=== PATIENT | female | born 1980 | race African-American/Black ===

== ENCOUNTER 2016-12-24 07:20 | Inpatient (IN) | payer OTHER ==
[2016-12-24 07:51] VITALS: BMI 26.4
[2016-12-24] MEDS: ELECTROLYTE-148 SOLN 1,000 ML IV SCH (08:00)
[2016-12-24] MEDS ORDERED: CITRIC ACID/SODIUM CITRATE 30 ML UNIT-DOSE CUP PO ONE (08:32)
--- NOTE | 2016-12-24 08:38 | HP ---
Past Medical History - Primary Care Physician PCP:: Gabe Daley - Admission Chief Complaint: preganancy 39 weeks, previous c/s request of c/s and BTL, AMA History of Present Illness: 36 yo f 39 weeks, ama, previous c/s request of repeat c/s and BTL, aware failure risk and riskof ectopic, rba discussed, hx of fibroid uterus History Source: Patient Limitations to Obtaining History: No Limitations - Past Medical History ...: 2 ...Para: 1 ...Term: 1 ...: 0 ...Spon : 0 ...Induced : 0 ...Multiple Gestation: 0 ...LMP: 03/26/17 ... 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 Home Medications - Allergies Allergies/Adverse Reactions: Allergies Allergy/AdvReac Type Severity Reaction Status Date / Time No Known Allergies Allergy Verified 01/22/14 10:10 - Home Medications Home Medications: Ambulatory Orders Vitamins (Sjr) - 1 tab PO DAILY 05/25/14 Review of Systems - Review of Systems Constitutional: reports: No Symptoms Eyes: reports: No Symptoms HENT: reports: No Symptoms Neck: reports: No Symptoms Cardiovascular: reports: No Symptoms Respiratory: reports: No Symptoms Gastrointestinal: reports: No Symptoms Genitourinary: reports: No Symptoms Breasts: reports: No Symptoms Reported Musculoskeletal: reports: No Symptoms Integumentary: reports: No Symptoms Neurological: reports: No Symptoms Endocrine: reports: No Symptoms Hematology/Lymphatic: reports: No Symptoms Psychiatric: reports: No Symptoms Physical Exam - Maternity Vital Signs: Vital Signs Temperature 98.2 F 12/24/16 07:39 Pulse Rate 88 12/24/16 07:39 Respiratory Rate 20 12/24/16 07:39 Blood Pressure 118/72 12/24/16 07:39 O2 Sat by Pulse Oximetry (%) Constitutional: Yes: Well Nourished, No Distress, Calm Eyes: Yes: WNL, Conjunctiva Clear, EOM Intact HENT: Yes: WNL, Atraumatic, Normocephalic Neck: Yes: WNL, Supple, Trachea Midline Cardiovascular: Yes: WNL, Regular Rate and Rhythm Breast(s): Yes: WNL - Abdominal Exam/OB Fundal Height: 40 Number of Fetuses: Single Presentation: Vertex Contractions: Yes Regularity: Irregular Intensity: Unaware Monitor Mode: External Heart Rate Location: [facility] Category: I Accelerations: Uniform Decelerations: None - Vaginal Exam/OB Vaginal Bleediing: No Speculum Exam: No Dilatation (cm): closed Effacement (%): 0 Amniotic Membrane Status: Intact Presentation: Vertex/Position Station: -3 - Physical Exam Edema: Yes Edema: LLE: Trace, RLE: Trace Deep Tendon Reflex Grade: Normal +2 Hemorrhage Risk Assessment - Risk Factors Risk Score: 0 Risk Level: Low Risk Problem List - Problems (1) with 39 completed weeks gestation Code(s): Z3A.39 - 39 WEEKS GESTATION OF (2) Previous section complicating Code(s): O34.219 - MATERNAL CARE FOR UNSP TYPE SCAR FROM PREVIOUS DEL (3) Advanced maternal age (AMA) in Code(s): ZXX9229 - (4) Fibroid uterus Code(s): D25.9 - LEIOMYOMA OF UTERUS, UNSPECIFIED Qualifiers: Uterine leiomyoma location: intramural and submucous Qualified Code( s): D25.1 - Intramural leiomyoma of uterus; D25.0 - Submucous leiomyoma of uterus (5) Sterilization Code(s): Z30.2 - ENCOUNTER FOR STERILIZATION Assessment/Plan repeat c/s BTL. rba discussed
[2016-12-24] MEDS ORDERED: METHYLERGONOVINE MALEATE 0.2 MG/1 ML AMP IM PRN (09:41)
[2016-12-24] MEDS ORDERED: IBUPROFEN 600 MG TABLET (FP) PO PRN (09:41)
[2016-12-24] MEDS ORDERED: BENZOCAINE 28 GM HEMORRHOIDAL OINTMENT PR PRN (09:41)
[2016-12-24] MEDS ORDERED: oxyCODONE HCL 5 MG TABLET PO PRN ×2 (09:41)
[2016-12-24] MEDS ORDERED: diphenhydrAMINE HCL 25 MG CAPSULE (FP) PO PRN (09:41)
[2016-12-24] MEDS ORDERED: WITCH HAZEL 50% (TUCKS) 40 PAD/JAR PAD TP PRN (09:41)
[2016-12-24] MEDS ORDERED: BENZOCAINE 20% 57 GM BOTTLE TP PRN (09:41)
[2016-12-24] MEDS ORDERED: OXYTOCIN 20 UNITS in 0.9% NS 1,000 ML IV SCH (09:45)
[2016-12-24] MEDS ORDERED: ONDANSETRON 4 MG/2 ML VIAL IVPB PRN (09:55)
[2016-12-24] MEDS ORDERED: CEFAZOLIN 1 GM/D5W 50 ML IVPB SCH (10:00)
[2016-12-24] MEDS: IBUPROFEN 800 MG/8 ML IJ IVPB PRN ×2 (10:47→23:37)
--- NOTE | 2016-12-24 13:25 | OP ---
DATE OF OPERATION: 12/24/2016 PREOPERATIVE DIAGNOSES: , 39 weeks, previous section, advanced maternal age, request repeat section and tubal ligation. POSTOPERATIVE DIAGNOSES: , 39 weeks, previous section, advanced maternal age, request repeat section and tubal ligation. PROCEDURE: Repeat low-segment transverse section and bilateral tubal ligation. SURGEON: Gabe Daley MD MANAGER: . ESTIMATED BLOOD LOSS: 500 mL. FINDINGS: A live baby, 9, 9. OPERATION: Patient was taken to the operating room. Under adequate spinal anesthesia, abdomen and perineum were prepped and draped. Pfannenstiel abdominal skin incision was made. Abdominal wall was cut layer by layer until peritoneum was exposed and incised. Upon entering the abdominal cavity, low transverse segment was identified and uterovesical fold of peritoneum established. Bladder was pushed down. Then, with the lower blade of the Angela retractor in the pelvis a low-transverse uterine incision was made. The incision extended laterally. Amniotic sac was entered. Clear fluid. Head delivered. Nasopharynx was suctioned and live baby was delivered without any difficulty. Placenta was delivered manually. Uterine cavity was cleared of all remaining tissue. Uterine incision was closed in 2 layers, 1st layer with 0 Biosyn continuous suture, the 2nd layer with 0 Biosyn imbricating the 1st layer. Bladder flap was closed with 0 Biosyn continuous suture. Both tubes and ovaries were checked, were normal. Then, right tube was grasped with Jose clamp and a Kendra clamp was applied at the mid portion of the tube and the portion was removed and then the stump was sutured with 2-0 Biosyn suture. The same procedure repeated for opposite tube and then no active bleeding was seen. All the lap pad, sponge, and instrument counts were correct and peritoneum was closed with 0 Biosyn continuous suture. Muscles were brought together with interrupted suture of 0 Biosyn. Fascia was closed with 0 Biosyn continuous suture, subcutaneous fat with interrupted suture of 0 Biosyn, and the skin was closed with 3-0 Biosyn subcuticular suture. Patient tolerated procedure well. Left the OR in good condition. Jacob [id number]
[2016-12-24] MEDS: CEFAZOLIN (PRE-DOCKED) 50 ML IVPB SCH (17:25)
[2016-12-25] MEDS: CEFAZOLIN (PRE-DOCKED) 50 ML IVPB SCH (01:21)
[2016-12-25 07:45] LABS: BASOPHIL 0.3 % (0-2.0); EOSINOPHIL 0.3 % (0-4.5); MCH 31.7 pg (25.7-33.7); MCHC 33.8 g/dl (32.0-36.0); MEAN CELL VOLUME 93.7 fl (80-96); MEAN PLT VOLUME 9.8 fl (7.5-11.1); NEUTROPHILS 80.5 % (42.8-82.8); PLATELET COUNT 146 K/MM3 (134-434); WHITE BLOOD COUNT 13.1 K/mm3 (4.0-10.0)
[2016-12-25] MEDS: SIMETHICONE 80 MG TAB.CHEW (FP) PO PRN ×3 (08:35→17:30)
--- NOTE | 2016-12-25 08:58 | PN ---
Post Progress Note - Subjective Subjective: No complaints. No flatus yet. Pain is controlled. Post Day: 1 Type of Delivery: Repeat C/S Vital Signs: Vital Signs Temperature 97 F L 12/25/16 08:23 Pulse Rate 76 12/25/16 08:23 Respiratory Rate 18 12/25/16 08:23 Blood Pressure 99/66 12/25/16 08:23 O2 Sat by Pulse Oximetry (%) 100 12/24/16 21:00 Breast Exam: Yes: Soft Uterus: Yes: Fundus Firm, Fundus below umbilicus, Non-tender Incision: Yes: Dressing dry and intact Abdomen/GI: Yes: Abdomen soft, Tolerating PO Lochia: Yes: Rubra Lochia, amount: Small Extremities: Yes: Calves non-tender, Edema (trace) Perineum: Yes: Intact Activity: Ambulating - Labs Labs: CBC WBC 13.1 K/mm3 (4.0-10.0) H D 12/25/16 06:20 RBC 3.30 M/mm3 (3.60-5.2) L 12/25/16 06:20 Hgb 10.5 GM/dL (10.7-15.3) L D 12/25/16 06:20 Hct 31.0 % (32.4-45.2) L 12/25/16 06:20 MCV 93.7 fl (80-96) 12/25/16 06:20 MCH 31.7 pg (25.7-33.7) 12/25/16 06:20 MCHC 33.8 g/dl (32.0-36.0) 12/25/16 06:20 RDW 14.0 % (11.6-15.6) 12/25/16 06:20 Plt Count 146 K/MM3 (134-434) 12/25/16 06:20 MPV 9.8 fl (7.5-11.1) 12/25/16 06:20 Neutrophils % 80.5 % (42.8-82.8) 12/25/16 06:20 Lymphocytes % 11.5 % (8-40) D 12/25/16 06:20 Monocytes % 7.4 % (3.8-10.2) 12/25/16 06:20 Eosinophils % 0.3 % (0-4.5) 12/25/16 06:20 Basophils % 0.3 % (0-2.0) 12/25/16 06:20 Assessment/Plan 26yo P2 s/p repeat LT C/S, doing well stable, afebrile. Asymptomatic for anemia care instructions reviewed. Continue routine postop care. Ambulation encouraged.
--- NOTE | 2016-12-25 09:27 | FALL ---
Fall Exam - Event Location of Fall: Bathroom Fall from: sink - Pre-Fall Fall Risk: At Risk Mental Status: Alert, Oriented Current Medications: Current Medications Generic Name Dose Route Start Last Admin Trade Name Freq PRN Reason Stop Dose Admin Acetaminophen 650 mg 12/24/16 09:55 Tylenol - PO Q4H PRN FEVER OR PAIN Benzocaine 1 applic 12/24/16 09:41 Americaine Ointment - NV PRN PRN PAIN Benzocaine 1 spray 12/24/16 09:41 Americaine 20% Supply - TP PRN PRN PAIN Bisacodyl 10 mg 12/25/16 09:41 Dulcolax Suppository - RC PRN PRN CONSTIPATION Diphenhydramine HCl 25 mg 12/24/16 09:41 Benadryl - PO Q8H PRN FOR ITCHING Diphenhydramine HCl 25 mg 12/24/16 09:55 12/24/16 23:21 Benadryl Injection - IVPUSH 25 mg Q4H PRN Administration Pruritis Enoxaparin Sodium 40 mg 12/25/16 10:00 Lovenox - SQ DAILY GAYLA Parenteral Electrolytes 1,000 mls @ 125 mls/hr 12/24/16 08:45 12/24/16 08:00 Plasma-Lyte 148 - IV 125 mls/hr ASDIR GAYLA Administration Dextrose/Lactated Ringer's 1,000 mls @ 125 mls/hr 12/24/16 09:45 D5-Lr - IV ASDIR GAYLA Ibuprofen 600 mg 12/24/16 09:55 Motrin - PO Q4H PRN PAIN Methylergonovine Maleate 0.2 mg 12/24/16 09:41 Methergine Injection - IM Q4H PRN EXCESSIVE BLEEDING Oxycodone HCl 5 mg 12/24/16 09:41 Roxicodone - PO Q4H PRN PAIN LEVEL 1-5 Oxycodone HCl 10 mg 12/24/16 09:41 Roxicodone - PO Q4H PRN PAIN LEVEL 6-10 Senna/Docusate Sodium 2 tablet 12/26/16 22:00 Pericolace - PO HS PRN CONSTIPATION Simethicone 80 mg 12/24/16 09:41 12/25/16 08:35 Mylicon - PO 80 mg Q4H PRN Administration GAS Witch Ami/Glycerin 1 pad 12/24/16 09:41 Tucks Pads - TP PRN PRN PAIN 12/25/16 09:26 - Post-Fall Patient Outcome: No Injury Vital Signs: Vital Signs Temperature 97 F L 12/25/16 08:23 Pulse Rate 76 12/25/16 08:23 Respiratory Rate 18 12/25/16 08:23 Blood Pressure 99/66 12/25/16 08:23 O2 Sat by Pulse Oximetry (%) 100 12/24/16 21:00 LOC Post-Fall: Awake, Alert, Oriented Identify factors for HIGH RISK for Head Injury: Known to have hit head
[2016-12-25] MEDS ORDERED: BISACODYL 10 MG SUPP.RECT RC PRN (09:41)
[2016-12-25] MEDS ORDERED: ENOXAPARIN NA (PORCINE) 40 MG/0.4 ML DISP.SYRIN SQ SCH (10:00)
[2016-12-25] MEDS: IBUPROFEN 600 MG TABLET (FP) PO PRN ×2 (10:06→17:30)
[2016-12-25] MEDS: ACETAMINOPHEN 325 MG TABLET (FP) PO PRN ×2 (10:07→17:31)
--- NOTE | 2016-12-25 10:53 | PN ---
Progress Note (short form) - Note Progress Note: Anesthesia postop note 36 y/o F s/p spinal anesthesia/duramorph for section POD#1, vss, aaox3, pain well controlled, sensory motor intact distally No anesthesia complications.
[2016-12-25] MEDS: ENOXAPARIN NA (PORCINE) 40 MG/0.4 ML DISP.SYRIN SQ SCH (12:47)
[2016-12-25] MEDS: ELECTROLYTE-148 SOLN 1,000 ML IV SCH (19:34)
[2016-12-25] MEDS: DEXTROSE 5%-LACTATED RINGERS 1,000 ML IV SCH (19:34)
--- NOTE | 2016-12-26 08:02 | PN ---
Post Progress Note - Subjective Subjective: Patient without acute complaints. s/p fall and LOC yesterday. Reports hit head No current lightheadedness or dizziness. No nausea or vomiting No pain Reports tolerating oral intake without nausea or vomiting. Pain well controlled with oral pain medication. without difficulty. Passing flatus. Post Day: 2 Type of Delivery: Repeat C/S Vital Signs: Vital Signs Temperature 98.2 F 12/26/16 06:00 Pulse Rate 99 H 12/26/16 06:00 Respiratory Rate 18 12/26/16 06:00 Blood Pressure 114/72 12/26/16 06:00 O2 Sat by Pulse Oximetry (%) 100 12/24/16 21:00 Uterus: Yes: Fundus Firm, Fundus below umbilicus Incision: Yes: Sutures intact Abdomen/GI: Yes: Abdomen soft. No: Abdominal Distention Lochia: Yes: Serosa Lochia, amount: Small Extremities: Yes: Calves non-tender, Edema (trace) Activity: Ambulating - Labs Labs: CBC WBC 13.1 K/mm3 (4.0-10.0) H D 12/25/16 06:20 RBC 3.30 M/mm3 (3.60-5.2) L 12/25/16 06:20 Hgb 10.5 GM/dL (10.7-15.3) L D 12/25/16 06:20 Hct 31.0 % (32.4-45.2) L 12/25/16 06:20 MCV 93.7 fl (80-96) 12/25/16 06:20 MCH 31.7 pg (25.7-33.7) 12/25/16 06:20 MCHC 33.8 g/dl (32.0-36.0) 12/25/16 06:20 RDW 14.0 % (11.6-15.6) 12/25/16 06:20 Plt Count 146 K/MM3 (134-434) 12/25/16 06:20 MPV 9.8 fl (7.5-11.1) 12/25/16 06:20 Neutrophils % 80.5 % (42.8-82.8) 12/25/16 06:20 Lymphocytes % 11.5 % (8-40) D 12/25/16 06:20 Monocytes % 7.4 % (3.8-10.2) 12/25/16 06:20 Eosinophils % 0.3 % (0-4.5) 12/25/16 06:20 Basophils % 0.3 % (0-2.0) 12/25/16 06:20 Assessment/Plan 36 yo POD # 2 s/p repeat CD, afebrile, vital signs stable, s/p fall, doing well 1. No LOC, no CHAVEZ, fall precautions reviewed 2. Encourage ambulation and incentive spirometer use 3. Continue oral pain medication 4. Anticipate discharge home postoperative day #3 or #4
[2016-12-26] MEDS: ENOXAPARIN NA (PORCINE) 40 MG/0.4 ML DISP.SYRIN SQ SCH (09:25)
[2016-12-26] MEDS: IBUPROFEN 600 MG TABLET (FP) PO PRN ×2 (09:26→20:01)
[2016-12-26] MEDS: ACETAMINOPHEN 325 MG TABLET (FP) PO PRN ×2 (09:26→20:02)
[2016-12-26] MEDS ORDERED: SENNOSIDES/DOCUSATE COMBO (SENNA PLUS) TABLET (UD) PO PRN (22:00)
--- NOTE | 2016-12-27 05:17 | DS ---
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 Vital Signs: Vital Signs Temperature 98.1 F 12/26/16 21:38 Pulse Rate 102 H 12/26/16 21:38 Respiratory Rate 18 12/26/16 21:38 Blood Pressure 102/68 12/26/16 21:38 O2 Sat by Pulse Oximetry (%) 100 12/24/16 21:00 Constitutional: Yes: Well Nourished, No Distress, Calm Eyes: Yes: WNL, Conjunctiva Clear, EOM Intact HENT: Yes: WNL, Atraumatic, Normocephalic Neck: Yes: WNL, Supple, Trachea Midline Cardiovascular: Yes: WNL, Regular Rate and Rhythm Respiratory: Yes: WNL, Regular, CTA Bilaterally Gastrointestinal: Yes: WNL ...Rectal Exam: Yes: WNL Renal/: Yes: WNL ....Post : Yes: Uterus firm, Uterus non-tender, Slight lochia rubra Breast(s): Yes: WNL Musculoskeletal: Yes: WNL Extremities: Yes: WNL Integumentary: Yes: WNL Wound/Incision: Yes: Clean/Dry, Well Approximated, Sutures Intact Neurological: Yes: WNL, Alert, Oriented ...Motor Strength: WNL Psychiatric: Yes: WNL, Alert, Oriented Labs: CBC, BMP 12/25/16 06:20 Delivery - Delivery Section: Repeat, Low Flap Transverse (no complication) Type of Anesthesia: Spinal Episiotomy/Laceration: None EBL (cc): 500 Delivery, Single - Stages of Labor Date of Delivery: 12/24/16 Time of Delivery: 08:57 Time Placenta Delivered: 08:58 Placenta: Yes: Expressed - Condition of Infant Bridge Manager/Auto Wash Buffer Present: Yes Name: Marcio Dinh Gender: Male Weight: 7 lb 8 oz Position: Left, OA Total Hours ROM (Hrs/Mins): 0/2 - 1 Minute Total Score: 8 5 Minutes Total Score: 9 - [place] Feeding Plan Initial Plan: Exclusive throughout hospitalization Discharge Summary Reason For Visit: CSECTION Current Active Problems Advanced maternal age (AMA) in (Acute) Fibroid uterus (Acute) with 39 completed weeks gestation (Acute) Previous section complicating (Acute) Sterilization (Acute) Procedures: Principal: repeat lst c/s Hospital Course: uneventful Condition: Good - Instructions Diet, Activity, Other Instructions: regular diet, follow up office 1 week Referrals: Gabe Daley MD [Staff Physician] - Disposition: HOME - Home Medications Comprehensive Discharge Medication List: Ambulatory Orders Vitamins (Sjr) - 1 tab PO DAILY 05/25/14 Ibuprofen [Motrin -] 600 mg PO QID #28 tablet 12/26/16
[2016-12-27] MEDS: IBUPROFEN 600 MG TABLET (FP) PO PRN (06:10)
[2016-12-27] MEDS: ACETAMINOPHEN 325 MG TABLET (FP) PO PRN (06:10)
[2016-12-27 07:52] VITALS: BP 113/69; PULSE 86; TEMP 97.6
[2016-12-27 08:52] LABS: BASOPHIL 0.4 % (0-2.0); EOSINOPHIL 0.7 % (0-4.5); MCH 31.8 pg (25.7-33.7); MCHC 34.2 g/dl (32.0-36.0); MEAN CELL VOLUME 93.2 fl (80-96); MEAN PLT VOLUME 9.2 fl (7.5-11.1); NEUTROPHILS 74.3 % (42.8-82.8); PLATELET COUNT 162 K/MM3 (134-434); RDW 14.1 % (11.6-15.6); WHITE BLOOD COUNT 9.2 K/mm3 (4.0-10.0)
[2016-12-27] MEDS: ENOXAPARIN NA (PORCINE) 40 MG/0.4 ML DISP.SYRIN SQ SCH (09:31)
--- NOTE | 2016-12-27 17:11 | PATH ---
Surgical Pathology Report Patient Name: ADAM BECKMAN [facility]. Rec. 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 Specimen(s) Received A: PLACENTA B: RIGHT FALLOPIAN TUBE C: LEFT FALLOPIAN TUBE Clinical History History of , fibroid Final Diagnosis A. PLACENTA, DELIVERY: FOCALLY DISRUPTED THIRD TRIMESTER PLACENTA WITH THREE VESSEL UMBILICAL CORD AND UNREMARKABLE PLACENTAL MEMBRANES. B. RIGHT FALLOPIAN TUBE, SALPINGECTOMY: FULL LUMINAL PORTION OF UNREMARKABLE FALLOPIAN TUBE, INCLUDING FIMBRIATED END. C. LEFT FALLOPIAN TUBE, SALPINGECTOMY: FULL LUMINAL PORTION OF UNREMARKABLE FALLOPIAN TUBE, INCLUDING FIMBRIATED END. Electronically Signed Taye Torres M.D. Gross Description A. The specimen is received fresh labeled placenta and is a 421 gram, 17.0 x 14.0 x 2.3 cm. placenta with attached membranes and umbilical cord. The attached membranes are grider, thick, cloudy and insert marginally. The umbilical cord measures 27 cm. in length and averages 1.2 cm. in diameter. The cord inserts eccentrically, 2.5 cm. to the nearest margin. No true knots or strictures are identified. Cut surface of the umbilical cord reveals 3 vessels. The surface is armas-blue with minimal fibrin deposition and appropriate caliber vessels. The maternal surface is red-brown with focal defects. Sectioning reveals red-brown, spongy parenchyma. No lesions are identified. Sculpture Instructor sections are submitted in three cassettes as follows: 1- membrane rolls and umbilical cord; 2-3- full thickness sections of placenta. B. Received in formalin labeled "right portion of tube," is a 2.2 cm in length fimbriated fallopian tube. The outer surface is grider-ferrer and smooth. Sectioning reveals an unremarkable lumen. Sculpture Instructor sections are submitted in 2 cassettes as follows: 1-fimbria; 2-cross sections of fallopian tube. C. Received in formalin labeled "left tube portion," is a 2.5 cm in length fimbriated portion of fallopian tube. The outer surface is grider-ferrer and smooth. Sectioning reveals an unremarkable lumen. Sculpture Instructor sections are submitted in 2 cassettes as follows: 1-fimbria; 2-cross sections of fallopian tube. 12/26/201612/26/2016
== END 2016-12-27 12:15 | disposition home or self-care (01) | DRG 766 ==
LOC: JLDR 07:20 → J3W 11:20
PROVIDERS: ADMIT Obstetrics & Gynecology; ATTEND Obstetrics & Gynecology
PROC: 10D00Z1 Extraction of Products of Conception, Low, Open Approach (ICD-10-PCS; principal; 2016-12-24)
PROC: 0UL70ZZ Occlusion of Bilateral Fallopian Tubes, Open Approach (ICD-10-PCS; 2016-12-24)
DX: O34.211 Maternal care for low transverse scar from previous cesarean delivery (principal); O34.13 Maternal care for benign tumor of corpus uteri, third trimester; D25.1 Intramural leiomyoma of uterus; N85.8 Other specified noninflammatory disorders of uterus; D25.0 Submucous leiomyoma of uterus; Z3A.39 39 weeks gestation of pregnancy; Z30.2 Encounter for sterilization; Z37.0 Single live birth
CPT/HCPCS: 36415; 70450-TC; 85025; 88302-TC; 88307-TC